=== PATIENT | male | born 1985 | race Caucasian/White ===

== ENCOUNTER 2020-03-29 14:18 | Emergency (ER) | payer BC, SELFPAY ==
[~2020-03-29] VITALS: Ht 175.3 cm; Wt 117.9 kg
[2020-03-29 14:21] VITALS: Ht 175.3 cm; Wt 117.9 kg
[2020-03-29 15:08] VITALS: BP 154/99
== END 2020-03-29 15:08 | disposition home or self-care (01) ==
LOC: ED 14:18
DX: U07.1 COVID-19 (principal)
CPT/HCPCS: U0003-CS